=== PATIENT | female | born 1965 | race Caucasian/White ===

== ENCOUNTER → 2017-11-14 15:45 | Outpatient (CLI) | payer OTHER, SELFPAY ==
--- NOTE | 2017-11-14 15:51 | RAD_ITS ---
STUDY: X-RAY - LUMBAR SPINE REASON FOR EXAM: Female, 51 years old. Nontraumatic low back pain. TECHNIQUE: 5 view(s) of the lumbar spine were obtained. COMPARISON: None FINDINGS: Normal lumbar lordosis. There is no substantial scoliosis. There is a normal alignment of the vertebrae. No vertebral body fracture. No pars defect. Loss of height at the L5-S1 intervertebral disc space with associated multilevel endplate change. Degenerative change of the facet joints from L3 through S1. The soft tissue structures are unremarkable. RAD/L/S Spine Min 4 Views IMPRESSION: Mild multilevel degenerative disc and facet disease of the lower lumbar spine. Electronically Signed: Suraj Bourne MD at 0:34 EDT Tel , Service support ,
== END ==
PROVIDERS: Visit Provider Chiropractor
DX: S33.5XXA Sprain of ligaments of lumbar spine, initial encounter (principal)
CPT/HCPCS: 72110

== ENCOUNTER → 2018-06-12 15:12 | Outpatient (CLI) | payer OTHER, SELFPAY ==
--- NOTE | 2018-06-12 15:16 | BD_ITS ---
STUDY: DUAL ENERGY X-RAY ABSORPTIOMETRY / DXA REASON FOR EXAM: Female, 52 years old. The patient is postmenopausal. Loss of height. TECHNIQUE: Bone Mineral Density (BMD) measurements of lumbar spine and bilateral hips were obtained. COMPARISON: None. FINDINGS: Lumbar Spine (L1-L4): g/cm2 (1.465) / T-score (2.5) / Z-score (3.3) Findings are suggestive of normal bone density with a low fracture risk. Left Femur Total: g/cm2 (1.026) / T-score (0.1) / Z-score (0.8) Left Femoral Neck: g/cm2 (0.998) / T-score (-0.3) / Z-score (0.7) Right Femur Total: g/cm2 (1.001) / T-score (-0.1) / Z-score (0.6) Right Femoral Neck: g/cm2 (0.878) / T-score (-1.2) / Z-score (-0.2) BD/Dexa Bone Density Study IMPRESSION: The patient is considered osteopenic as outlined below according to World Boni Organization (WHO) criteria with a low fracture risk. Reference Information: The T-score is the number of standard deviations above or below the standard which is normal for young adults at their peak bone mineral density. The World Health Organization (WHO) interprets the T-scores as follows: Above -1 Normal bone density Between -1 and -2.5 Osteopenia Equal to / or below -2.5 Osteoporosis As a practical clinical guideline, osteopenia may be graded as follows: Mild -1 through -1.5 Moderate -1.6 through -2.0 Severe -2.1 through -2.4 The Z-score is the number of standard deviations above or below age-matched controls. A Z-score of less than -1.5 would be considered abnormal. References: 1. NIH Osteoporosis and Related Bone Diseases http://www.osteo.org 2. International Society for Clinical Densitometry http://www.iscd.org 3. National Osteoporosis Foundation http://www.nof.org Electronically Signed: Vijay Sanchez MD at 15:29 EST , Service support ,
--- NOTE | 2018-06-12 15:17 | BI_ITS ---
MAMMOGRAPHY - BILATERAL SCREENING REASON FOR EXAM: Female, 52 years old. Routine annual screening examination. PERTINENT HISTORY: Aunt with breast cancer. TECHNIQUE: Digital bilateral breast po (3D mammographic acquisition) in the CC and MLO projections. 2-D mediolateral oblique (MLO) and craniocaudad (CC) views of both breasts were obtained. CAD: Full Field Digital Mammography with Computer Added Detection was performed. COMPARISON: Comparison is made with prior outside examination dated June 07, 2016. FINDINGS: Breast Composition: The breasts are heterogeneously dense, which may obscure small masses. There are no dominant masses or suspicious calcifications. No other significant abnormalities are identified. There has been no significant change since the prior study. BI/SCREENING MAMM (CAD), BILAT IMPRESSION: Stable bilateral screening mammogram. Yearly follow-up mammogram recommended. (A) ASSESSMENT CATEGORY: BIRADS Category 1: Negative. A letter regarding these results will be sent to the patient by the facility within 30 days. Approximately 10% of breast cancers are not detected by mammography. A normal mammogram should not delay biopsy of a clinically suspicious abnormality. [id number] Electronically Signed: Vijay Sanchez MD at 9:32 EST , Service support ,
== END ==
PROVIDERS: Family Provider Nurse Practitioner; PCP Nurse Practitioner; Referring Provider Nurse Practitioner; Visit Provider Nurse Practitioner
DX: Z12.31 Encounter for screening mammogram for malignant neoplasm of breast (principal); Z78.0 Asymptomatic menopausal state
CPT/HCPCS: 77063; 77067; 77080

== ENCOUNTER → 2019-06-20 | Outpatient (CLI) | payer OTHER, SELFPAY ==
[2018-11-28 10:34] VITALS: BMI 27.5
--- NOTE | 2019-06-20 16:05 | BI_ITS ---
MAMMOGRAPHY - BILATERAL SCREENING REASON FOR EXAM: Female, 53 years old. Routine annual screening examination. PERTINENT HISTORY: Paternal aunt had breast cancer in her late 60s TECHNIQUE: Digital bilateral breast millicent (3D mammographic acquisition) in the CC and MLO projections. 2-D mediolateral oblique (MLO) and craniocaudad (CC) views of both breasts were obtained. CAD: Full Field Digital Mammography with Computer Added Detection was performed. COMPARISON: Previous mammogram obtained on 06/12/2018 FINDINGS: Breast Composition: Dense internal breath structures identified There are no dominant masses or suspicious calcifications. No other significant abnormalities are identified. BI/SCREEN MAMM (CAD) W/MILLICENT BILAT IMPRESSION: Stable bilateral screening mammogram. Yearly follow-up mammogram recommended. (A) ASSESSMENT CATEGORY: BIRADS Category 1: Negative. A letter regarding these results will be sent to the patient by the facility within 30 days. Approximately 10% of breast cancers are not detected by mammography. A normal mammogram should not delay biopsy of a clinically suspicious abnormality. [id number] Electronically Signed: Servando Pappas, at 19:43 EST Tel , Service support ,
== END | disposition home or self-care (01) ==
LOC: OPBI 16:04
PROVIDERS: PCP Nurse Practitioner; Referring Provider Nurse Practitioner; Visit Provider Nurse Practitioner
DX: Z12.31 Encounter for screening mammogram for malignant neoplasm of breast (principal)
CPT/HCPCS: 77063; 77067

== ENCOUNTER → 2020-07-23 16:11 | Outpatient (CLI) | payer OTHER, SELFPAY ==
[2018-11-28 10:34] VITALS: BMI 27.5
--- NOTE | 2020-07-23 16:14 | BI_ITS ---
MAMMOGRAPHY - BILATERAL SCREENING REASON FOR EXAM: Female, 54 years old. Routine annual screening examination. PERTINENT HISTORY: Aunt with breast cancer. TECHNIQUE: Digital bilateral breast millicent (3D mammographic acquisition) in the CC and MLO projections. 2-D mediolateral oblique (MLO) and craniocaudad (CC) views of both breasts were obtained. CAD: Full Field Digital Mammography with Computer Added Detection was performed. COMPARISON: Comparison is made with prior study dated 06/20/2019 and June 12 FINDINGS: Breast Composition: The breasts are extremely dense, which lowers the sensitivity of mammography. There are no dominant masses or suspicious calcifications. No other significant abnormalities are identified. There has been no significant change since the prior study. BI/SCRN MAMM (CAD)W/MILLICENT BILAT IMPRESSION: Stable bilateral screening mammogram. Yearly follow-up mammogram recommended. (A) ASSESSMENT CATEGORY: BIRADS Category 1: Negative. A letter regarding these results will be sent to the patient by the facility within 30 days. Approximately 10% of breast cancers are not detected by mammography. A normal mammogram should not delay biopsy of a clinically suspicious abnormality. [id number] Electronically Signed: Vijay Sanchez MD at 8:05 EDT , Service support ,
== END ==
PROVIDERS: PCP Nurse Practitioner; Referring Provider Nurse Practitioner; Visit Provider Nurse Practitioner
DX: Z12.31 Encounter for screening mammogram for malignant neoplasm of breast (principal)
CPT/HCPCS: 77063; 77067

== ENCOUNTER 2021-01-25 11:44 | Outpatient (CLI) | payer OTHER, SELFPAY ==
[2021-01-25] MEDS: 0.9% Saline Lock 10 ML Syringe IV (12:01)
[2021-01-25 12:04] VITALS: BP 148/75; PULSE 86; RESP 16; TEMP 36.8; O2SAT 97; BMI 26.6
[2021-01-25 12:46] VITALS: BP 123/70; PULSE 88; RESP 16; TEMP 37.4; O2SAT 97
[2021-01-25 13:46] VITALS: BP 127/70; PULSE 92; RESP 16; TEMP 37.3; O2SAT 100
== END 2021-01-25 13:47 | disposition home or self-care (01) ==
LOC: MS3OUT 11:44 → MS3 11:45
PROVIDERS: PCP Nurse Practitioner; Referring Provider Nurse Practitioner Adult Health; Visit Provider Nurse Practitioner Adult Health
DX: Z23 Encounter for immunization (principal); U07.1 COVID-19
CPT/HCPCS: J7050; M0243; A4216; Q0244

== ENCOUNTER → 2022-01-27 | Outpatient (CLI) | payer OTHER, SELFPAY ==
--- NOTE | 2022-01-27 15:58 | BI_ITS ---
MAMMOGRAPHY - BILATERAL SCREENING REASON FOR EXAM: Female, 56 years old. Routine annual screening examination. PERTINENT HISTORY: Aunt with breast cancer. TECHNIQUE: Digital bilateral breast millicent (3D mammographic acquisition) in the CC and MLO projections. 2-D mediolateral oblique (MLO) and craniocaudad (CC) views of both breasts were obtained. CAD: Full Field Digital Mammography with Computer Added Detection was performed. COMPARISON: Comparison is made with prior study dated 07/23/2020 and 06/20/2019. FINDINGS: Breast Composition: The breasts are extremely dense, which lowers the sensitivity of mammography. There are no dominant masses or suspicious calcifications. No other significant abnormalities are identified. There has been no significant change since the prior study. BI/SCRN MAMM (CAD)W/MILLICENT BILAT IMPRESSION: Stable bilateral screening mammogram. Yearly follow-up mammogram recommended. (A) ASSESSMENT CATEGORY: BIRADS Category 1: Negative. A letter regarding these results will be sent to the patient by the facility within 30 days. Approximately 10% of breast cancers are not detected by mammography. A normal mammogram should not delay biopsy of a clinically suspicious abnormality. [id number] Electronically Signed: Vijay Sanchez MD at 8:22 EDT ,
--- NOTE | 2022-01-27 16:07 | BD_ITS ---
STUDY: DUAL ENERGY X-RAY ABSORPTIOMETRY / DXA REASON FOR EXAM: Female, 56 years old. [id number]. Patient is postmenopausal. TECHNIQUE: Bone Mineral Density (BMD) measurements of lumbar spine and bilateral hips were obtained. COMPARISON: Comparison is made with prior study dated 06/12/2018. FINDINGS: Lumbar Spine (L1-L4): g/cm2 (1.173) / T-score (1.2) / Z-score (2.5) Findings are suggestive of normal bone density with a low fracture risk. Left Femur Total: g/cm2 (0.881) / T-score (-0.5) / Z-score (0.3) Left Femoral Neck: g/cm2 (0.762) / T-score (-0.8) / Z-score (0.4) Right Femur Total: g/cm2 (0.914) / T-score (-0.2) / Z-score (0.6) Right Femoral Neck: g/cm2 (0.748) / T-score (-0.9) / Z-score (0.3) The T-Scores on the most recent prior examination were: Lumbar Spine (L1-L4): There has been worsening of bone density since the previous examination. Left Femur Total: which represents a worsening of 8.1%. Right Femur Total: which represents a worsening of 2.3%. BD/Dexa Bone Density Study IMPRESSION: The patient is considered normal as outlined below according to World Boni Organization (WHO) criteria with a low fracture risk. There has been worsening of bone density since the previous examination. Reference Information: The T-score is the number of standard deviations above or below the standard which is normal for young adults at their peak bone mineral density. The World Health Organization (WHO) interprets the T-scores as follows: Above -1 Normal bone density Between -1 and -2.5 Osteopenia Equal to / or below -2.5 Osteoporosis As a practical clinical guideline, osteopenia may be graded as follows: Mild -1 through -1.5 Moderate -1.6 through -2.0 Severe -2.1 through -2.4 The Z-score is the number of standard deviations above or below age-matched controls. A Z-score of less than -1.5 would be considered abnormal. References: 1. NIH Osteoporosis and Related Bone Diseases www osteo.org 2. International Society for Clinical Densitometry www iscd.org 3. National Osteoporosis Foundation www nof.org Electronically Signed: Vijay Sanchez MD at 10:05 EDT ,
== END | disposition home or self-care (01) ==
PROVIDERS: PCP Nurse Practitioner; Visit Provider Nurse Practitioner Family
DX: Z12.31 Encounter for screening mammogram for malignant neoplasm of breast (principal); M85.80 Other specified disorders of bone density and structure, unspecified site; Z78.0 Asymptomatic menopausal state
CPT/HCPCS: 77063; 77067; 77080

== ENCOUNTER → 2022-05-27 | Outpatient (CLI) | payer OTHER, SELFPAY ==
--- NOTE | 2022-05-27 08:52 | ECHOD_ITS ---
Reason For Study: New Murmur Procedure This was a 2D Doppler, Color Flow transthoracic echocardiogram. Exam performed in department. Left Ventricle Normal LV size. The estimated ejection fraction is 70 %. Normal diastology for age. No regional wall motion abnormalities noted. Right Ventricle Normal RV size. Normal systolic function. Atria Normal left atrium. Normal right atrium. No doppler evidence for ASD. Mitral Valve There is no mitral valve stenosis. No mitral valve insufficiency. Tricuspid Valve There is no tricuspid stenosis. Trivial tricuspid valve insufficiency. Pulmonary artery systolic pressure is 30 mmHg. Aortic Valve Trisinus/trileaflet aortic valve. There is no aortic stenosis. No aortic valve insufficiency. Pulmonic Valve There is no pulmonic valvular stenosis. No pulmonic valve insufficiency. Great Vessels Normal aortic root. Pericardium/Pleural No pericardial effusion. MMode/2D Measurements & Calculations LVIDd: 4.5 cm IVSd: 0.88 cm Ao root diam: 2.9 cm LVIDs: 2.3 cm LVPWd: 1.1 cm RVDd: 3.0 cm FS: 49.6 % LAV(MOD-bp): 34.6 ml LVAd ap4: 21.9 cm2 SV(MOD-sp4): 36.3 ml LAV(MOD-bp) Indexed: 17.9 ml/m2 LVLd ap4: 7.0 cm LAV(MOD-sp2): 33.9 ml EDV(MOD-sp4): 56.8 ml LAV(MOD-sp4): 30.0 ml EDV(sp4-el): 58.2 ml LVAs ap4: 11.3 cm2 LVLs ap4: 5.7 cm ESV(MOD-sp4): 20.4 ml ESV(sp4-el): 19.1 ml EF(MOD-sp4): 64.0 % EF(sp4-el): 67.2 % SV(sp4-el): 39.1 ml LA A4 area: 13.2 cm2 LA dimension(2D): 3.2 cm RA A4 area: 9.0 cm2 Time Measurements MV dec time: 0.18 sec Doppler Measurements & Calculations MV E max mk: 56.8 cm/sec Lat Peak E' Mk: 6.1 cm/sec Med Peak E' Mk: 5.2 cm/sec MV A max mk: 90.7 cm/sec E/E' lat: 9.3 E/E' med: 10.8 MV E/A: 0.63 Ao V2 max: 156.0 cm/sec LV V1 max: 101.4 cm/sec MV dec slope: 315.3 cm/sec2 Ao max P.7 mmHg LV V1 max P.1 mmHg Ao V2 mean: 117.3 cm/sec Ao mean P.8 mmHg Ao V2 VTI: 26.3 cm PA V2 max: 134.7 cm/sec TR max mk: 250.6 cm/sec TR max P.1 mmHg ECHO/Echo Complete Interpretation Summary The estimated ejection fraction is 70 %. Trivial tricuspid valve insufficiency. Ordering Physician: Margarita Springer Referring Physician: Margarita Springer Performed By: Neva Smith, FREDI, RVT
--- NOTE | 2022-05-27 08:53 | RDU_ITS ---
Reason For Study: Resistant HTN Right Renal Artery Left Renal Artery Right renal artery ostium 83.3/26.7 Left renal artery ostium 120.7/43 RSV/EDV. PSV/EDV. Right renal artery proximal Left renal artery proximal PSV/EDV 150.6/51.8 PSV/EDV. 133.7/45.6 . Right renal artery mid 180.4/63.8 Left renal artery mid 138.9/45.6 PSV/EDV. PSV/EDV . Right renal artery distal 127.5/42 Left renal artery distal 125.5/44.3 PSV/EDV. PSV/EDV. Right RAR 1.91. Left RAR 1.47. Right Renal Parenchyma Left Renal Parenchyma Upper Pole Medula 22.2/7.5 PSV/EDV. Left upper pole medulla 27.8/9.9 Right upper pole medulla EDR 0.3 . PSV/EDV . Right upper pole medulla R.I. Left upper pole medulla EDR 0.4 . 0.66 . Left upper pole medulla R.I. 0.64 . Upper Syed Cortx 13.7/4.2 PSV/EDV. UP Cortex 22.2/8.7 PSV/EDV. Right upper pole cortex EDR 0.3 . Left upper pole cortex EDR 0.4 . Right upper pole cortex R.I. 0.69 . Left upper pole cortex R.I. 0.61 . Right lower Pole medulla 25.9/9.9 Left lower Pole medulla 29.6/10.6 PSV/EDV . PSV/EDV . Right lower pole medulla EDR 0.4 . Left lower pole medulla EDR 0.4 . Right lower pole medulla R.I. Left lower pole medulla R.I. 0.64 . 0.62 . Lower Pole Cortx 17.3/6.9 PSV/EDV. Lower Pole Cortex 16/7 PSV/EDV. Left lower pole cortex EDR 0.4 . Right lower pole cortex EDR 0.4 . Left lower pole cortex R.I. 0.60 . Right lower pole cortex R.I. 0.56 . Left Renal Hilar Right Renal Hilar LT Hilar avg 58.5/21 PSV/EDV . Right Hilar avg 53.2/19.4 PSV/EDV. Left hilar acceleration time 50 Right hilar acceleration time 60 m/sec. m/sec. Left Renal Dimensions Right Renal Dimensions Left kidney size 10.13 cm . Right kidney size 10.74 cm . Left cortical dimension 1.66 cm . Right cortical dimension 1.56 cm . Aorta Proximal abdominal aorta 1.43 x 1.43 cm . Proximal abdominal aorta peak systolic velocity is 94.3 cm/sec . Distal abdominal aorta 1.38 x 1.35 cm . Distal abdominal aorta peak systolic velocity is 103.4 cm/sec . VL/Renal Artery Duplex Ultrasound Interpretation Summary Less than 60% stenosis bilateral renal arteries Right renal length maintained at 10.74 cm Left renal length maintained at 10.13 cm Normal renal resistive ED indices bilaterally suggesting maintained parenchymal function Ordering Physician: Margarita Springer Referring Physician: Margarita Springer Performed By: Deepthi Forbes RVT
== END | disposition home or self-care (01) ==
LOC: CVS 08:49
PROVIDERS: PCP Nurse Practitioner Family; Visit Provider Nurse Practitioner Family
DX: I10 Essential (primary) hypertension (principal); R01.1 Cardiac murmur, unspecified
CPT/HCPCS: 93306; 93975

== ENCOUNTER → 2023-07-04 | Outpatient (CLI) | payer BC, SELFPAY ==
--- NOTE | 2023-07-04 15:10 | BI_ITS ---
MAMMOGRAPHY - BILATERAL SCREENING REASON FOR EXAM: Female, 57 years old. Routine annual screening examination. PERTINENT HISTORY: Aunt with breast cancer. TECHNIQUE: Digital bilateral breast millicent (3D mammographic acquisition) in the CC and MLO projections. 2-D mediolateral oblique (MLO) and craniocaudad (CC) views of both breasts were obtained. CAD: Full Field Digital Mammography with Computer Added Detection was performed. COMPARISON: Comparison is made with prior study dated January 27, 2022 and July 23, 2020. FINDINGS: Breast Composition: The breasts are extremely dense, which lowers the sensitivity of mammography. There are no dominant masses or suspicious calcifications. No other significant abnormalities are identified. There has been no significant change since the prior study. BI/SCRN MAMM (CAD)W/MILLICENT BILAT IMPRESSION: Stable bilateral screening mammogram. Yearly follow-up mammogram recommended. (A) ASSESSMENT CATEGORY: BIRADS Category 1: Negative. A letter regarding these results will be sent to the patient by the facility within 30 days. Approximately 10% of breast cancers are not detected by mammography. A normal mammogram should not delay biopsy of a clinically suspicious abnormality. [id number] Electronically Signed: Vijay Sanchez MD at 10:25 EDT ,
== END | disposition home or self-care (01) ==
LOC: OPBI 15:14
PROVIDERS: PCP Nurse Practitioner Family; Referring Provider Nurse Practitioner Family; Visit Provider Nurse Practitioner Family
DX: Z12.31 Encounter for screening mammogram for malignant neoplasm of breast (principal)
CPT/HCPCS: 77063; 77067

== ENCOUNTER → 2024-02-20 | Outpatient (CLI) | payer BC, SELFPAY ==
--- NOTE | 2024-02-20 10:10 | BD_ITS ---
STUDY: DUAL ENERGY X-RAY ABSORPTIOMETRY / DXA REASON FOR EXAM: Female, 58 years old. 627.8Menopausal postmenopausal BONE DENSITY REASON FOR EXAM -- Postmenopausal status TECHNIQUE: Bone Mineral Density (BMD) measurements of lumbar spine and bilateral hips were obtained. COMPARISON: Comparison is made with prior study January 27, 2022. FINDINGS: Lumbar Spine (L1-L4): g/cm2 (1.288) / T-score (2.1) / Z-score (3.6) Findings are suggestive of normal bone density with a low fracture risk. Left Femur Total: g/cm2 (0.928) / T-score (-0.1) / Z-score (0.8) Left Femoral Neck: g/cm2 (0.800) / T-score (-0.4) / Z-score (0.8) Right Femur Total: g/cm2 (0.936) / T-score (-0.1) / Z-score (0.9) Right Femoral Neck: g/cm2 (0.779) / T-score (-0.6) / Z-score (0.7) The T-Scores on the most recent prior examination were: Lumbar Spine (L1-L4): There has been worsening of bone density since the previous examination. Left Femur Total: which represents an improvement of 5.3%. Right Femur Total: which represents an improvement of 2.4%. BD/Dexa Bone Density Study IMPRESSION: The patient is considered normal as outlined below according to World Boni Organization (WHO) criteria with a low fracture risk. There has been improvement of bone density since the previous examination. Reference Information: The T-score is the number of standard deviations above or below the standard which is normal for young adults at their peak bone mineral density. The World Health Organization (WHO) interprets the T-scores as follows: Above -1 Normal bone density Between -1 and -2.5 Osteopenia Equal to / or below -2.5 Osteoporosis As a practical clinical guideline, osteopenia may be graded as follows: Mild -1 through -1.5 Moderate -1.6 through -2.0 Severe -2.1 through -2.4 The Z-score is the number of standard deviations above or below age-matched controls. A Z-score of less than -1.5 would be considered abnormal. References: 1. NIH Osteoporosis and Related Bone Diseases www osteo.org 2. International Society for Clinical Densitometry www iscd.org 3. National Osteoporosis Foundation www nof.org Electronically Signed: Vijay Sanchez MD at 11:00 EDT ,
== END | disposition home or self-care (01) ==
PROVIDERS: PCP Nurse Practitioner Family; Referring Provider Nurse Practitioner Family; Visit Provider Nurse Practitioner Family
DX: Z78.0 Asymptomatic menopausal state (principal)
CPT/HCPCS: 77080

== ENCOUNTER → 2024-09-10 | Outpatient (CLI) | payer BC, SELFPAY ==
--- NOTE | 2024-09-10 12:39 | BI_ITS ---
EXAM: SCRN MAMM (CAD)W/MILLICENT BILAT DATE: 09/10/2024 CLINICAL HISTORY: F, Age 58 y/o , SCRN MAMM (CAD)W/MILLICENT BILAT Aunt with breast cancer. BREAST CANCER RISK ASSESSMENT: Not assessed. TECHNIQUE: Bilateral screening digital breast tomosynthesis with 2D and 3D images. Computer aided detection. COMPARISON: Prior exam(s) dated July 04, 2023.. FINDINGS: TISSUE DENSITY: The breast tissue is heterogenously dense, which may obscure small masses. Bilateral Breast Mammographic Findings: No significant masses, calcifications or other abnormalities are identified. No suspicious masses, areas of developing architectural distortion, or suspicious calcifications. There has been no significant interval change. BI/SCRN MAMM (CAD)W/MILLICENT BILAT IMPRESSION: OVERALL FINAL ASSESSMENT: BIRADS 1 NEGATIVE RECOMMENDATION: Routine annual follow-up in 1 Year A letter with findings and recommendations will be mailed to the patient. Reading Location: [place] [id number]
== END | disposition home or self-care (01) ==
LOC: OPBI 12:38
PROVIDERS: PCP Nurse Practitioner Family; Referring Provider Nurse Practitioner Family; Visit Provider Nurse Practitioner Family
DX: Z12.31 Encounter for screening mammogram for malignant neoplasm of breast (principal)
CPT/HCPCS: 77063; 77067